=== PATIENT | female | born 1965 | race Caucasian/White ===

== ENCOUNTER 2017-06-08 12:53 | Emergency (ER) | payer BC ==
[2017-06-08 12:58] VITALS: BMI 22.3
[2017-06-08] MEDS ORDERED: DEMEROL INJ IVP ONE (13:05)
[2017-06-08] MEDS ORDERED: ZOFRAN INJ 4 MG VIAL IVP ONE (13:05)
[2017-06-08] MEDS ORDERED: ASPIRIN 81 MG CHEWTAB PO ONE (13:07)
[2017-06-08] MEDS ORDERED: ZOFRAN INJ 4 MG VIAL ONE (13:10)
[2017-06-08] MEDS ORDERED: DEMEROL INJ ONE (13:10)
[2017-06-08 13:16] LABS: BASOPHILS % (AUTO) 0.3 % (0.2-1.0); EOSINOPHILS # (AUTO) 0.1 x10^3/uL (0.0-0.2); EOSINOPHILS % (AUTO) 1.5 % (0.9-2.9); HEMATOCRIT 35.1 % (36.0-47.0); HEMOGLOBIN 11.8 g/dL (12.0-16.0); LYMPHOCYTES # (AUTO) 1.5 X10^3/uL (1.3-2.9); LYMPHOCYTES % (AUTO) 29.9 % (21.0-51.0); MEAN CORPUSCULAR HEMOGLOBIN 30.7 pg (27.0-34.0); MEAN CORPUSCULAR HGB CONC 33.7 g/dL (33.0-35.0); MEAN CORPUSCULAR VOLUME 91.1 fL (80.0-100.0); MEAN PLATELET VOLUME 6.9 fL (7.4-11.0); MONOCYTES # (AUTO) 0.4 x10^3/uL (0.3-0.8); MONOCYTES % (AUTO) 7.3 % (0.0-13.0); PLATELET COUNT 263 X10^3/uL (150.0-450.0); RED BLOOD COUNT 3.85 X10^6/uL (3.5-5.4); RED CELL DISTRIBUTION WIDTH 16.1 % (11.6-16.5)
[2017-06-08] MEDS ORDERED: NIFEDIPINE CAP 10 MG PO ONE ×2 (13:17→13:24)
--- NOTE | 2017-06-08 13:17 | DR.CP ---
HPI - PCP Primary Care Physician: RONALD CRESPO - Complaint Chief Complaint:: PT. C/O CHEST TIGHTNESS THAT RADIATES DOWN LEFT ARM AND LEFT SIDE OF NECK. PT. ALSO C/O HTN. 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 - Reviewed Nurses Notes Review: Yes - Source History Provided: Patient - Mode of Arrival Mode of Arrival: Ambulatory - Timing Onset of Chief Complaint: 05/18/17 PMH - PMH Past Medical History: Yes Past Medical History: Anxiety, Hypertension, Migraines Past Surgical History: Yes Surgical History: Hysterectomy - Family History History of Family Medical Conditions: Yes Family Medical History: Cancer, Coronary Artery Disease, Heart Failure, Hypertension - Social History Does patient currently use any type of tobacco product: No Have you used tobacco products in the last 12 months: No Type of Tobacco Use: None Does any household member use tobacco: No Alcohol Use: None Do you use any recreational Drugs:: No Lives With: Family Lives Where: Home - infectious screening In the last 2 months have you had wt loss of >10#?: NO Have you had fever, night sweats or hemotysis?: No Have you traveled outside the country in the last 6 months?: No Isolation: Standard PE - Vitals Vitals: Temperature 97.8 F Pulse Rate [Apical] 67 Pulse Rate 63 Respiratory Rate 17 Blood Pressure [Right Arm] 179/90 Blood Pressure 218/103 O2 Sat by Pulse Oximetry 100 ROR - Labs Reviewed Result Diagrams: 06/08/17 13:05 06/08/17 13:05 Laboratory: WBC 5.0 X10^3/uL (3.6-10.0) 06/08/17 13:05 RBC 3.85 X10^6/uL (3.5-5.4) 06/08/17 13:05 Hgb 11.8 g/dL (12.0-16.0) L 06/08/17 13:05 Hct 35.1 % (36.0-47.0) L 06/08/17 13:05 MCV 91.1 fL (80.0-100.0) 06/08/17 13:05 MCH 30.7 pg (27.0-34.0) 06/08/17 13:05 MCHC 33.7 g/dL (33.0-35.0) 06/08/17 13:05 RDW 16.1 % (11.6-16.5) 06/08/17 13:05 Plt Count 263 X10^3/uL (150.0-450.0) 06/08/17 13:05 MPV 6.9 fL (7.4-11.0) L 06/08/17 13:05 Neut % 61.0 % (42.0-75.0) 06/08/17 13:05 Lymph % 29.9 % (21.0-51.0) 06/08/17 13:05 Door % 7.3 % (0.0-13.0) 06/08/17 13:05 Eos % 1.5 % (0.9-2.9) 06/08/17 13:05 Baso % 0.3 % (0.2-1.0) 06/08/17 13:05 Neut # 3.0 x10^3/uL (2.2-4.8) 06/08/17 13:05 Lymph # 1.5 X10^3/uL (1.3-2.9) 06/08/17 13:05 Door # 0.4 x10^3/uL (0.3-0.8) 06/08/17 13:05 Eos # 0.1 x10^3/uL (0.0-0.2) 06/08/17 13:05 Baso # 0.0 X10^3/uL (0.0-0.1) 06/08/17 13:05 Absolute Nucleated RBC 0.0 /100WBC 06/08/17 13:05 INR Target Range - 06/08/17 13:05 INR 0.96 (0.8-1.3) 06/08/17 13:05 PTT 25.8 SECONDS (22.9-36.5) 06/08/17 13:05 PTT Comment - 06/08/17 13:05 Sodium 141 mmol/L (136-145) 06/08/17 13:05 Corrected Sodium TNP 06/08/17 13:05 Potassium 3.5 mmol/L (3.5-5.1) 06/08/17 13:05 Chloride 105 mmol/L (98-107) 06/08/17 13:05 Carbon Dioxide 29.7 mmol/L (21-32) 06/08/17 13:05 BUN 7 mg/dL (7-18) 06/08/17 13:05 Creatinine 0.70 mg/dL (0.55-1.02) 06/08/17 13:05 Est GFR (MDRD) Af Amer > 60 (>60) 06/08/17 13:05 Est GFR (MDRD) Non-Af > 60 (>60) 06/08/17 13:05 Glucose 100 mg/dL (65-99) H 06/08/17 13:05 Calcium 8.9 mg/dL (8.5-10.1) 06/08/17 13:05 Corrected Calcium TNP 06/08/17 13:05 Magnesium 1.8 mg/dL (1.7-2.9) 06/08/17 13:05 Total Bilirubin 0.30 mg/dL (0.2-1.0) 06/08/17 13:05 AST 20 Units/L (15-37) 06/08/17 13:05 ALT 20 Units/L (12-78) 06/08/17 13:05 Alkaline Phosphatase 88 Units/L (46-116) 06/08/17 13:05 Creatine Kinase 52 Units/L (26-192) 06/08/17 13:05 CK-MB (CK-2) < 1.0 ng/mL (0-4.0) 06/08/17 13:05 CK/CKMB % Calc 1.9 % (<4) 06/08/17 13:05 Troponin I < 0.02 ng/mL (0-1.5) 06/08/17 13:05 Total Protein 7.0 g/dL (6.4-8.2) 06/08/17 13:05 Albumin 3.8 g/dL (3.4-5.0) 06/08/17 13:05 Globulin 3.2 g/dL (2.5-4.5) 06/08/17 13:05 Albumin/Globulin Ratio 1.2 Ratio (1.1-2.1) 06/08/17 13:05 - Discharge Plan Condition: Stable - Follow ups/Referrals Follow ups/Referrals: EJ WILCOX [Primary Care Provider] - 3 days - Instructions
[2017-06-08] MEDS ORDERED: NIFEDIPINE CAP 10 MG ONE (13:20)
[2017-06-08 13:39] LABS: ALANINE AMINOTRANSFERASE 20 Units/L (12-78); ALBUMIN 3.8 g/dL (3.4-5.0); ALKALINE PHOSPHATASE 88 Units/L (46-116); ASPARTATE AMINO TRANSFERASE 20 Units/L (15-37); BLOOD UREA NITROGEN 7 mg/dL (7-18); CALCIUM 8.9 mg/dL (8.5-10.1); CARBON DIOXIDE 29.7 mmol/L (21-32); CHLORIDE 105 mmol/L (98-107); CKMB % 1.9 % (<4); CREATINE KINASE 52 Units/L (26-192); CREATINE KINASE MB < 1.0 ng/mL (0-4.0); MAGNESIUM 1.8 mg/dL (1.7-2.9); SODIUM 141 mmol/L (136-145); TROPONIN I < 0.02 ng/mL (0-1.5); eGFR BLACK RACES > 60 (>60); eGFR NON BLACK RACES > 60 (>60)
--- NOTE | 2017-06-08 15:03 | RAD ---
HISTORY: 52-year-old female with chest pain. Study: Frontal view of the chest. Comparison: None. Findings: The trachea is midline. The cardiac silhouette is unremarkable. The lungs are clear without focal c onsolidation, effusion or pneumothorax. Soft tissues are unremarkable. Osseous structures are unrema rkable. IMPRESSION: 1. No acute cardiopulmonary disease. Reported By:
[2017-06-08] MEDS ORDERED: LOPRESSOR TAB 50 MG PO ONE (15:20)
[2017-06-08] MEDS ORDERED: ZESTRIL TAB 20 MG PO ONE (15:21)
[2017-06-08] MEDS ORDERED: FLUVIRIN IM ONE (16:06)
[2017-06-08 19:17] LABS: CKMB % 2.5 % (<4); CREATINE KINASE 40 Units/L (26-192); CREATINE KINASE MB < 1.0 ng/mL (0-4.0); TROPONIN I < 0.02 ng/mL (0-1.5)
[2017-06-08] MEDS: NORCO 7.5/325 MG TAB PO PRN (20:37)
[2017-06-09 01:08] LABS: CREATINE KINASE 33 Units/L (26-192); CREATINE KINASE MB < 1.0 ng/mL (0-4.0); TROPONIN I < 0.02 ng/mL (0-1.5)
[2017-06-09] MEDS: NORCO 7.5/325 MG TAB PO PRN (04:03)
[2017-06-09 05:50] LABS: BASOPHILS % (AUTO) 1.1 % (0.2-1.0); EOSINOPHILS # (AUTO) 0.1 x10^3/uL (0.0-0.2); EOSINOPHILS % (AUTO) 2.7 % (0.9-2.9); HEMATOCRIT 34.2 % (36.0-47.0); HEMOGLOBIN 11.6 g/dL (12.0-16.0); LYMPHOCYTES # (AUTO) 1.2 X10^3/uL (1.3-2.9); MEAN CORPUSCULAR HEMOGLOBIN 31.3 pg (27.0-34.0); MEAN CORPUSCULAR HGB CONC 34.1 g/dL (33.0-35.0); MEAN PLATELET VOLUME 7.6 fL (7.4-11.0); MONOCYTES # (AUTO) 0.3 x10^3/uL (0.3-0.8); MONOCYTES % (AUTO) 8.8 % (0.0-13.0); NEUTROPHILS # (AUTO) 2.2 x10^3/uL (2.2-4.8); NEUTROPHILS % (AUTO) 55.4 % (42.0-75.0); PLATELET COUNT 245 X10^3/uL (150.0-450.0); RED BLOOD COUNT 3.72 X10^6/uL (3.5-5.4); RED CELL DISTRIBUTION WIDTH 15.9 % (11.6-16.5); WHITE BLOOD COUNT 3.9 X10^3/uL (3.6-10.0)
[2017-06-09 06:02] LABS: ALANINE AMINOTRANSFERASE 19 Units/L (12-78); ALBUMIN 3.4 g/dL (3.4-5.0); ALKALINE PHOSPHATASE 79 Units/L (46-116); ASPARTATE AMINO TRANSFERASE 15 Units/L (15-37); BLOOD UREA NITROGEN 12 mg/dL (7-18); CALCIUM 8.6 mg/dL (8.5-10.1); CARBON DIOXIDE 29.3 mmol/L (21-32); CHLORIDE 107 mmol/L (98-107); SODIUM 142 mmol/L (136-145); TOTAL PROTEIN 6.4 g/dL (6.4-8.2); eGFR BLACK RACES > 60 (>60); eGFR NON BLACK RACES > 60 (>60)
[2017-06-09] MEDS ORDERED: FIORICET #3 W/CODEINE CAP PO PRN (07:18)
[2017-06-09] MEDS ORDERED: PHENERGAN INJ 25 MG IV PRN (08:39)
[2017-06-09] MEDS ORDERED: DEMEROL INJ IVP PRN (08:42)
--- NOTE | 2017-06-09 08:45 | DR.H&P ---
H&P - History & Physical for Day of: H&P Date: 06/08/17 - Chief Complaint Chief Complaint: chest pain, bhatti elevated bp - Allergies Allergies/Adverse Reactions: Allergies Allergy/AdvReac Type Severity Reaction Status Date / Time morphine Allergy Verified 06/08/17 15:43 - History of Present Illness History of Present Illness: pt is 52 WF admitted from ER after presented with co chest pain. Pt was hypertensive in ED. pt admitted to r/o AMI. Pt states CP is pressure type pain radiates to left neck. Pt co nausea and bhatti. Pt has strong family hx of CAD, mother had CABG and sister in 50's recently with sudden cardiac event. Will obtain serial CE and EKG, pain and nausea control, telemetry and BP control. - Past Medical History Past Medical History: Anxiety, Hypertension, Migraines - Past Surgical History Surgical History: Hysterectomy - Family History Family Medical History: [place] - Social History Does patient currently use any type of tobacco product: No Have you used tobacco products in the last 12 months: No Type of Tobacco Use: None Does any household member use tobacco: No Alcohol Use: None Drug Use: None - Medications Home Medications: Aspirin [ASPIRIN 81 MG CHEWTAB *] 1 tab PO DAILY 06/08/17 [History Confirmed ] Citalopram Hydrobromide [Celexa 10 mg] 1 tab PO DAILY 06/08/17 [History Confirmed 06/08/17] Folic Acid 1 tab PO DAILY 06/08/17 [History Confirmed 06/08/17] Gabapentin [NEURONTIN TAB 600 MG *] 600 mg PO BID 06/08/17 [History Confirmed ] Hydrochlorothiazide [HYDROCHLOROTHIAZIDE 25 MG TAB *] 1 tab PO DAILY 06/08/17 [ History Confirmed 06/08/17] Hydrocodone-Acet 7.5 mg/325 mg [NORCO 7.5 MG/325 MG *] 1 tab PO Q6H PRN [History Confirmed 06/08/17] Hydroxychloroquine Sulfate 200 mg PO DAILY 06/08/17 [History Confirmed 06/08/17] Losartan Potassium 1 tab PO DAILY 06/08/17 [History Confirmed 06/08/17] Methotrexate Sodium [METHOTREXATE 2.5 MG *] 7 tabs PO WEEKLY 06/08/17 [History Confirmed 06/08/17] Potassium Chloride 1 tab PO DAILY 06/08/17 [History Confirmed 06/08/17] Qchtoqnpec-Nvug-Xosl-Codeine [FIORICET #3 W/Codeine cap *] 1 - 2 cap PO Q6H PRN 06/09/17 [History Confirmed 06/09/17] - Review of Systems Constitutional: Weakness Eyes: No Symptoms Reported ENT: No Symptoms Reported Respiratory: Shortness of Breath Cardiovascular: Chest Pain Gastrointestinal: Nausea Genitourinary: No Symptoms Reported Musculoskeletal: Neck Pain Skin: No Symptoms Reported Neurological: Weakness - Physical Exam Vital Signs: Temperature 98.5 F Pulse Rate [Apical] 65 Pulse Rate 63 Respiratory Rate 12 Blood Pressure [Right Arm] 163/76 Blood Pressure 218/103 O2 Sat by Pulse Oximetry 99 Oriented: Normal Eyes: Normal Ear: Normal Nose: Normal Throat: Normal Respiratory: Clear Throughout Cardiovascular: Normal. negative: Murmur : Normal Auscultation: Bowel Sounds: Normal Palpation: Normal Tenderness: Normal Skin: Normal Musculoskeletal: Tender (c spine) Psychiatric: Anxiety Affect: Anxious Speech Pattern: Clear, Appropriate - Assessment/Plan (1) Chest pain Status: Acute Plan: Admit, Serial CE EKG's, bp monitoring and control. resume home meds. cxr on admission (2) Hypertensive urgency Status: Acute (3) Sweet's disease Status: Acute (4) JESSICA (generalized anxiety disorder) Status: Acute
[2017-06-09 09:34] LABS: CREATINE KINASE 34 Units/L (26-192); CREATINE KINASE MB < 1.0 ng/mL (0-4.0); TROPONIN I < 0.02 ng/mL (0-1.5)
[2017-06-09 09:35] LABS: CKMB % 2.9 % (<4)
[2017-06-09 11:22] VITALS: BP 166/81
[2017-06-09] MEDS ORDERED: NS 100 ML IV 100 ML IV ONE (12:01)
--- NOTE | 2017-06-09 13:57 | CT ---
History: Hypertension Study: CTA of the abdomen and pelvis without and with 100 mL Omnipaque 300. MIPS of the abdominal aor ta and iliac arteries were displayed in multiple degrees of obliquity. Sagittal and coronal reformati ons were provided. Comparison: None Findings: The visualized lung bases are clear. There is no pleural effusion. There is moderate athero sclerotic calcification in the distal abdominal aorta and the common iliac and external iliac arterie s peer there is no calcification demonstrated of significance about the renal arteries. There is no e vidence for renal artery stenosis or aneurysm. There is a small cyst medially in the lower pole of th e left kidney. There are 2 right renal arteries. One to the ventral and dorsal segments. There is no evidence for aortic aneurysm. The iliac arteries are widely patent. The SMA and celiac axis and ONEL a re patent. There is fatty infiltration of the liver without focal mass. The spleen and pancreas and adrenal glan ds are unremarkable. There is no free fluid or adenopathy or abnormal mass. There is no significant b otto abnormality demonstrated. Impression: 1. Prominent atherosclerotic disease in the distal abdominal aorta and iliac arteries without evidenc e for stenosis or aneurysm demonstrated. 2.Two right renal arteries. No renal artery stenosis or aneurysm demonstrated Reported By:
== END 2017-06-09 13:10 | disposition short-term general hospital (02) | DRG 313 ==
LOC: ER 13:03 → MED/SURG 15:16
PROVIDERS: ADMIT Internal Medicine; ATTEND Internal Medicine
PROC: 3E0234Z Introduction of Serum, Toxoid and Vaccine into Muscle, Percutaneous Approach (ICD-10-PCS; principal; 2017-06-08)
DX: R07.89 Other chest pain (principal); I16.0 Hypertensive urgency; L98.2 Febrile neutrophilic dermatosis [Sweet]; I10 Essential (primary) hypertension; F41.8 Other specified anxiety disorders; R06.02 Shortness of breath; R94.31 Abnormal electrocardiogram [ECG] [EKG]
CPT/HCPCS: 36415; 71010; 74174; 80053; 82550; 82553; 83735; 84484; 85025; 85610; 85730; 90686; 93005; 93010; 94760; 96365; 96374; 96375; 99284; A4222; G0378; J2175; J2405; J2550

== ENCOUNTER 2019-11-08 12:31 | Observation (INO) ==
[2019-11-08] MEDS ORDERED: PHARMACY CONSULT - VANCOMYCIN XX SCH (13:00)
--- NOTE | 2019-11-08 13:26 | DR.H&P ---
H&P - History & Physical for Day of: H&P Date: 11/08/19 - Chief Complaint Chief Complaint: PAIN, REDNESS SWELLING TO RIGHT 5TH FINGER TIP - History of Present Illness History of Present Illness: PTIS 54 WF DIRECT ADMIT FROM DR ROBERSON OFFICE WITH ABSCESS AND CELLULITIS TO RIGHT 5TH FINGER. PT HAS HX OF SWEETS DISEASE AND HAS A HISTORY OF PUSTULAR RASH, LESION THAT REOCCUR. PT CO ONSET MONDAY, USING BACTROBAN DIRECTED WITH NO IMPROVEMENT. PT HAD INCREASED WARMTH, REDNESS TO FINGER TIP WITH PURULENT DC AND RED STREAKING UP HER ARM. PT HAD PMH OF HTN, OA, SWEETS, JESSICA. PT ADMITTED FOR TREATMENT OF ACUTE ILLNESS - Past Medical History Past Medical History: Anxiety, Hypertension, Migraines - Past Surgical History Surgical History: Hysterectomy - Family History Family Medical History: [place] - Social History Does patient currently use any type of tobacco product: No Have you used tobacco products in the last 12 months: No Type of Tobacco Use: None Does any household member use tobacco: No Drug Use: None Risks, benefits, and alternatives of opioids discussed: No Prescription drug monitoring program results: PDMP reviewed and no concerns identified - Medications Home Medications: morphine Allergy (Verified 11/08/19 12:44) - Review of Systems Constitutional: No Symptoms Reported Eyes: No Symptoms Reported ENT: No Symptoms Reported Respiratory: No Symptoms Reported Cardiovascular: No Symptoms Reported Gastrointestinal: Nausea Genitourinary: No Symptoms Reported Musculoskeletal: Back Pain, Hand Pain, Leg Pain Skin: Wound Neurological: No Symptoms Reported - Physical Exam Vital Signs: Blood Pressure [Right Arm] 166/81 Oriented: Normal Eyes: Normal Ear: Normal Nose: Normal Throat: Normal Respiratory: Clear Throughout Cardiovascular: Normal : Normal Auscultation: Bowel Sounds: Normal Palpation: Normal Tenderness: Normal Skin: Red, Tender, Hot, Wound (RIGHT 5TH FINGER TIP, ABCESS FORMATION LOCALIZED REDNESS, TENDER, PURULENT DC) Psychiatric: Anxiety Affect: Anxious Speech Pattern: Clear, Appropriate - Assessment/Plan (1) Abscess of finger of right hand Status: Acute Plan: ADMIT, CBC CMP BC UA ON ADMISSION. XRAY RIGHT HAND, IV HYDRATION. PAIN CONTROL, IV VACOMYCIN. WOUND CULTURE, CONSULT DR LU FOR I&D EVALUATION. BP CONTROL, VERIFY HOME MEDICATION (2) Cellulitis of hand Status: Acute (3) JESSICA (generalized anxiety disorder) Status: Acute (4) Sweet's disease Status: Acute - Allergies Allergies/Adverse Reactions: Allergies Allergy/AdvReac Type Severity Reaction Status Date / Time morphine Allergy Verified 11/08/19 12:44
--- NOTE | 2019-11-08 13:49 | RAD ---
HISTORYABCESS CELLULITIS RT 5TH FINGERSTUDYThree views of the right handCOMPARISONNoneFINDINGSThere is soft tissue swelling about the 5th digit distally and primarily medially on the ulnar side. There is no fracture or bone erosion or destruction or marginal osteophyte formation.IMPRESSIONDistal 5th digit soft tissue swelling without evidence for osteomyelitisElectronically signed by: FABIO BURRELL (Nov 08, 2019 13:48:38)
[2019-11-08 14:25] VITALS: BMI 27.1
[2019-11-08] MEDS: ASPIRIN 81 MG CHEWTAB PO SCH (14:46)
[2019-11-08] MEDS: NEURONTIN TAB 600 MG PO SCH ×2 (14:46→20:20)
[2019-11-08] MEDS: NS 1000 ML 1,000 ML IV SCH (14:48)
[2019-11-08 15:14] LABS: BASOPHILS % (AUTO) 0.3 % (0.2-1.0); EOSINOPHILS # (AUTO) 0.2 x10^3/uL (0.0-0.2); EOSINOPHILS % (AUTO) 1.9 % (0.9-2.9); HEMATOCRIT 39.8 % (36.0-47.0); HEMOGLOBIN 13.6 g/dL (12.0-16.0); LYMPHOCYTES # (AUTO) 1.6 X10^3/uL (1.3-2.9); LYMPHOCYTES % (AUTO) 17.9 % (21.0-51.0); MEAN CORPUSCULAR HEMOGLOBIN 31.4 pg (27.0-34.0); MEAN CORPUSCULAR HGB CONC 34.1 g/dL (33.0-35.0); MEAN PLATELET VOLUME 6.6 fL (7.4-11.0); MONOCYTES # (AUTO) 0.4 x10^3/uL (0.3-0.8); MONOCYTES % (AUTO) 4.8 % (0.0-13.0); NEUTROPHILS # (AUTO) 6.8 x10^3/uL (2.2-4.8); NEUTROPHILS % (AUTO) 75.1 % (42.0-75.0); PLATELET COUNT 616 X10^3/uL (150.0-450.0); RED BLOOD COUNT 4.33 X10^6/uL (3.5-5.4)
[2019-11-08] MEDS ORDERED: MARCAINE 0.5% IJ ONE (15:14)
[2019-11-08] MEDS ORDERED: BETADINE SOLN TOP ONE (15:17)
[2019-11-08] MEDS ORDERED: MARCAINE 0.5% ONE (15:22)
[2019-11-08 15:39] LABS: PLATELET MORPHOLOGY COMMENT NORMAL (NORMAL)
[2019-11-08 16:01] LABS: BLOOD UREA NITROGEN 11 mg/dL (7-18); CALCIUM 9.2 mg/dL (8.5-10.1); CARBON DIOXIDE 27.9 mmol/L (21-32); CHLORIDE 102 mmol/L (98-107); CREATININE 0.59 mg/dL (0.55-1.02); SODIUM 141 mmol/L (136-145); eGFR NON BLACK RACES > 60 (>60)
[2019-11-08 16:04] LABS: ALANINE AMINOTRANSFERASE 32 Units/L (12-78); ALBUMIN 3.2 g/dL (3.4-5.0); ALKALINE PHOSPHATASE 119 Units/L (46-116); ASPARTATE AMINO TRANSFERASE 29 Units/L (15-37); COR CA(FOR HYPOALB) 9.8 mg/dL (8.5-10.1); TOTAL PROTEIN 8.3 g/dL (6.4-8.2)
[2019-11-08] MEDS ORDERED: KLOR-CON PO PRN (16:17)
[2019-11-08] MEDS ORDERED: K-RIDER 10 MEQ/NS 100 ML 10 MEQ/100 ML BAG IV PRN (16:17)
[2019-11-08] MEDS ORDERED: POTASSIUM CHL 40 MEQ/NS 0.45% 500 ML IV PRN (16:17)
[2019-11-08] MEDS ORDERED: POTASSIUM CHLORIDE LIQ 20 MEQ UDC PO PRN (16:17)
[2019-11-08] MEDS ORDERED: POTASSIUM CHL 60 MEQ/NS 0.45% 500 ML IV PRN (16:17)
[2019-11-08] MEDS ORDERED: MICRO K EXTEN CAP 10 MEQ PO PRN (16:17)
[2019-11-08] MEDS: VANCOMYCIN HCL 1 G in D5W 250 ML IV 250 ML IV SCH ×2 (16:28→20:20)
[2019-11-08 18:25] LABS: BILIRUBIN,URINE NEGATIVE (NEGATIVE); BLOOD/HEMOGLOBIN,URINE NEGATIVE (NEGATIVE); GLUCOSE, URINE NEGATIVE (NEGATIVE); KETONES,URINE 1+ (NEGATIVE); LEUKOCYTE ESTERASE ,URINE NEGATIVE (NEGATIVE); NITRITES,URINE NEGATIVE (NEGATIVE); PH,URINE 6.5 (5.0 - 8.0); PROTEIN,URINE NEGATIVE (NEGATIVE); UROBILINOGEN,URINE NORMAL (NORMAL)
[2019-11-08 18:28] LABS: APPEARANCE,URINE CLEAR (CLEAR); COLOR,URINE YELLOW (YELLOW)
[2019-11-08] MEDS: K-DUR TAB 20 MEQ PO PRN (18:30)
[2019-11-08] MEDS: LOPRESSOR TAB 50 MG PO SCH (20:20)
[2019-11-08] MEDS: NORCO 10/325 TAB PO PRN (20:21)
[2019-11-09] MEDS ORDERED: XANAX ONE (00:35)
[2019-11-09] MEDS: XANAX PO PRN ×2 (00:36→22:30)
[2019-11-09] MEDS: NS 1000 ML 1,000 ML IV SCH ×2 (02:25→17:40)
[2019-11-09] MEDS: NORCO 10/325 TAB PO PRN ×4 (02:45→22:30)
[2019-11-09 05:46] LABS: BASOPHILS % (AUTO) 0.5 % (0.2-1.0); EOSINOPHILS # (AUTO) 0.2 x10^3/uL (0.0-0.2); EOSINOPHILS % (AUTO) 2.9 % (0.9-2.9); HEMATOCRIT 39.1 % (36.0-47.0); HEMOGLOBIN 13.1 g/dL (12.0-16.0); LYMPHOCYTES # (AUTO) 1.6 X10^3/uL (1.3-2.9); LYMPHOCYTES % (AUTO) 23.3 % (21.0-51.0); MEAN CORPUSCULAR HEMOGLOBIN 30.6 pg (27.0-34.0); MEAN CORPUSCULAR HGB CONC 33.5 g/dL (33.0-35.0); MEAN CORPUSCULAR VOLUME 91.2 fL (80.0-100.0); MEAN PLATELET VOLUME 6.2 fL (7.4-11.0); MONOCYTES # (AUTO) 0.4 x10^3/uL (0.3-0.8); MONOCYTES % (AUTO) 6.5 % (0.0-13.0); NEUTROPHILS # (AUTO) 4.5 x10^3/uL (2.2-4.8); NEUTROPHILS % (AUTO) 66.8 % (42.0-75.0); PLATELET COUNT 613 X10^3/uL (150.0-450.0); RED BLOOD COUNT 4.29 X10^6/uL (3.5-5.4); RED CELL DISTRIBUTION WIDTH 15.1 % (11.6-16.5); WHITE BLOOD COUNT 6.7 X10^3/uL (3.6-10.0)
[2019-11-09 06:01] LABS: ALANINE AMINOTRANSFERASE 25 Units/L (12-78); ALBUMIN 2.7 g/dL (3.4-5.0); ALKALINE PHOSPHATASE 109 Units/L (46-116); ASPARTATE AMINO TRANSFERASE 21 Units/L (15-37); BLOOD UREA NITROGEN 10 mg/dL (7-18); CALCIUM 8.8 mg/dL (8.5-10.1); CARBON DIOXIDE 27.4 mmol/L (21-32); CHLORIDE 108 mmol/L (98-107); COR CA(FOR HYPOALB) 9.8 mg/dL (8.5-10.1); CREATININE 0.63 mg/dL (0.55-1.02); SODIUM 143 mmol/L (136-145); TOTAL PROTEIN 7.3 g/dL (6.4-8.2); eGFR NON BLACK RACES > 60 (>60)
[2019-11-09 06:20] LABS: PLATELET MORPHOLOGY COMMENT NORMAL (NORMAL)
[2019-11-09] MEDS: COZAAR PO SCH (10:09)
[2019-11-09] MEDS: ASPIRIN 81 MG CHEWTAB PO SCH (10:09)
[2019-11-09] MEDS: NEURONTIN TAB 600 MG PO SCH ×2 (10:09→21:00)
[2019-11-09] MEDS: LOPRESSOR TAB 50 MG PO SCH ×2 (10:09→21:00)
[2019-11-09] MEDS: CELEXA PO SCH (10:10)
[2019-11-09] MEDS: VANCOMYCIN HCL 1 G in D5W 250 ML IV 250 ML IV SCH ×2 (10:13→22:00)
[2019-11-09] MEDS ORDERED: BACTROBAN TOPICAL OINT ONE (10:57)
[2019-11-09] MEDS ORDERED: HYDROGEN PEROXIDE 3% ONE (10:58)
[2019-11-09] MEDS ORDERED: PHARMACY COMMENT IV NR (20:30)
[2019-11-09 21:04] LABS: CREATININE 0.62 mg/dL (0.55-1.02); VANCOMYCIN,TROUGH 7.8 ug/mL (15-20)
[2019-11-10] MEDS ORDERED: CATAPRES TAB 0.1 MG PO ONE (03:49)
[2019-11-10] MEDS ORDERED: CATAPRES TAB 0.1 MG ONE (03:50)
[2019-11-10 05:36] LABS: BASOPHILS % (AUTO) 0.6 % (0.2-1.0); EOSINOPHILS # (AUTO) 0.2 x10^3/uL (0.0-0.2); EOSINOPHILS % (AUTO) 2.9 % (0.9-2.9); HEMATOCRIT 38.3 % (36.0-47.0); LYMPHOCYTES # (AUTO) 1.9 X10^3/uL (1.3-2.9); LYMPHOCYTES % (AUTO) 27.6 % (21.0-51.0); MEAN CORPUSCULAR HEMOGLOBIN 31.2 pg (27.0-34.0); MEAN CORPUSCULAR VOLUME 91.9 fL (80.0-100.0); MEAN PLATELET VOLUME 6.5 fL (7.4-11.0); MONOCYTES # (AUTO) 0.5 x10^3/uL (0.3-0.8); MONOCYTES % (AUTO) 7.5 % (0.0-13.0); NEUTROPHILS # (AUTO) 4.2 x10^3/uL (2.2-4.8); NEUTROPHILS % (AUTO) 61.4 % (42.0-75.0); PLATELET COUNT 650 X10^3/uL (150.0-450.0); RED BLOOD COUNT 4.17 X10^6/uL (3.5-5.4); RED CELL DISTRIBUTION WIDTH 15.3 % (11.6-16.5); WHITE BLOOD COUNT 6.9 X10^3/uL (3.6-10.0)
[2019-11-10 05:41] LABS: PLATELET MORPHOLOGY COMMENT NORMAL (NORMAL)
[2019-11-10 05:49] LABS: ALANINE AMINOTRANSFERASE 23 Units/L (12-78); ALBUMIN 2.6 g/dL (3.4-5.0); ALKALINE PHOSPHATASE 97 Units/L (46-116); ASPARTATE AMINO TRANSFERASE 16 Units/L (15-37); BLOOD UREA NITROGEN 6 mg/dL (7-18); CALCIUM 8.6 mg/dL (8.5-10.1); CARBON DIOXIDE 25.9 mmol/L (21-32); CHLORIDE 109 mmol/L (98-107); COR CA(FOR HYPOALB) 9.7 mg/dL (8.5-10.1); COR NA(FOR HYPERGLY) 143 mmol/L (136-145); CREATININE 0.54 mg/dL (0.55-1.02); SODIUM 143 mmol/L (136-145); TOTAL PROTEIN 7.1 g/dL (6.4-8.2); eGFR NON BLACK RACES > 60 (>60)
[2019-11-10] MEDS: VANCOMYCIN HCL 1 G in D5W 250 ML IV 250 ML IV SCH ×2 (05:51→05:56)
[2019-11-10] MEDS: K-DUR TAB 20 MEQ PO PRN (06:38)
[2019-11-10 08:07] VITALS: BP 155/77
[2019-11-10] MEDS: NEURONTIN TAB 600 MG PO SCH (08:34)
[2019-11-10] MEDS: COZAAR PO SCH (08:34)
[2019-11-10] MEDS: CELEXA PO SCH (08:35)
[2019-11-10] MEDS: ASPIRIN 81 MG CHEWTAB PO SCH (08:35)
[2019-11-10] MEDS: LOPRESSOR TAB 50 MG PO SCH (08:36)
[2019-11-10] MEDS: NS 1000 ML 1,000 ML IV SCH (08:37)
[2019-11-10] MEDS ORDERED: VANCOMYCIN HCL 1 G in D5W 250 ML IV 250 ML IV SCH (14:00)
[2019-11-10] MEDS ORDERED: PHARMACY COMMENT IV NR (21:30)
--- NOTE | 2019-12-06 10:33 | PCM.PROG ---
Progress Note - Progress Note for Day of Date of Exam: 11/09/19 - Subjective Subjective: IS A 54 YEAR OLD PATIENT OF . SHE WAS ADMITTED FOR AN ABSCESS AND CELLULITIS TO THE RIGHT 5TH FINGER. PT HAD INCREASED WARMTH, REDNESS TO FINGER TIP WITH PURULENT DC AND RED STREAKING UP HER ARM PRIOR TO ADMISSION. PT HAD PMH OF HTN, OA, SWEETS, JESSICA. ON ADMISSION, TOOK PATIENT TO THE OR FOR EXCISION AND DEBRIDEMENT OF 5TH FINGER, ABSCESS, AND CELLULITIS. ON MORNING ROUNDS. SHE REPORTS SLIGHT PAIN TO FINGER. FINGER IS NOTED WITH A DRESSING. DRESSING IS DRY AND INTACT. HER VITALS THIS MORNING ARE: 99.0-80-20-97%-149/70. LABS WERE OBTAINED. ABNORMAL LAB VALUES INCLUDE THE FOLLOWING: PLT COUNT 613, CHLORIDE 108, GLUCOSE 108, ALBUMIN 2.7, GLOBULIN 4.6. CULTURES ARE PENDING. SHE IS CURRENTLY RECEIVING IV VANCOMYCIN, PAIN CONTROL, AND WOUND CARE. WE WILL CONTINUE WITH CURRENT PLAN OF CARE TODAY. OTHERWISE, WE WILL FOLLOW UP WITH AM LABS AND CONTINUE TO MONITOR. - Past Medical Family Social History Past Med/Fam/Surg Hx: No changes since H&P Allergies: Allergies morphine Allergy (Verified 11/08/19 12:44) - Review of Systems ROS: No change since H&P - Vital Signs and I&O's Vital Signs: Temperature 98.6 F Pulse Rate [Brachial] 80 Respiratory Rate 18 Blood Pressure [Left Arm] 155/77 Blood Pressure [Right Arm] 166/81 O2 Sat by Pulse Oximetry 99 - Physical Exam Oriented: Normal Eyes: Normal Ear: Normal Nose: Normal Throat: Normal Cardiovascular: Normal : Normal Auscultation: Bowel Sounds: Normal Palpation: Normal Tenderness: Normal Skin: Red, Tender, Hot, Wound (RIGHT 5TH FINGER TIP, REDNESS AND TENDERNESS ) Psychiatric: Anxiety Mood Description: Calm Affect: Anxious Speech Pattern: Clear, Appropriate - Laboratory and Diagnostics Result Diagrams: 11/10/19 04:26 11/10/19 04:26 Labs: 11/08/19 14:32 Blood Blood Culture - Final 11/08/19 14:27 Blood Blood Culture - Final 11/08/19 14:35 Finger - Right Pinky Gram Stain - Final 11/08/19 14:35 Finger - Right Pinky Wound Culture - Final Laboratory WBC 6.9 X10^3/uL (3.6-10.0) 11/10/19 04:26 RBC 4.17 X10^6/uL (3.5-5.4) 11/10/19 04:26 Hgb 13.0 g/dL (12.0-16.0) 11/10/19 04:26 Hct 38.3 % (36.0-47.0) 11/10/19 04:26 MCV 91.9 fL (80.0-100.0) 11/10/19 04:26 MCH 31.2 pg (27.0-34.0) 11/10/19 04:26 MCHC 34.0 g/dL (33.0-35.0) 11/10/19 04: RDW 15.3 % (11.6-16.5) 11/10/19 04:26 Plt Count 650 X10^3/uL (150.0-450.0) H 11/10/19 04:26 Plt Count Comment Increased (ADEQUATE) A 11/10/19 04:26 MPV 6.5 fL (7.4-11.0) L 11/10/19 04:26 Neut % (Auto) 61.4 % (42.0-75.0) 11/10/19 04:26 Lymph % (Auto) 27.6 % (21.0-51.0) 11/10/19 04:26 [place] % (Auto) 7.5 % (0.0-13.0) 11/10/19 04:26 Eos % (Auto) 2.9 % (0.9-2.9) 11/10/19 04:26 Baso % (Auto) 0.6 % (0.2-1.0) 11/10/19 04:26 Neut # (Auto) 4.2 x10^3/uL (2.2-4.8) 11/10/19 04:26 Lymph # (Auto) 1.9 X10^3/uL (1.3-2.9) 11/10/19 04:26 [place] # (Auto) 0.5 x10^3/uL (0.3-0.8) 11/10/19 04:26 Eos # (Auto) 0.2 x10^3/uL (0.0-0.2) 11/10/19 04:26 Baso # (Auto) 0.0 X10^3/uL (0.0-0.1) 11/10/19 04:26 Absolute Nucleated RBC 0.0 /100WBC 11/10/19 04:26 Plt Morphology Comment Normal (NORMAL) 11/10/19 04:26 RBC Morphology Normal (NORMAL) 11/10/19 04:26 Sodium 143 mmol/L (136-145) 11/10/19 04:26 Corrected Sodium 143 mmol/L (136-145) 11/10/19 04:26 Potassium 3.1 mmol/L (3.5-5.1) L 11/10/19 04:26 Chloride 109 mmol/L (98-107) H 11/10/19 04:26 Carbon Dioxide 25.9 mmol/L (21-32) 11/10/19 04:26 BUN 6 mg/dL (7-18) L 11/10/19 04:26 Creatinine 0.54 mg/dL (0.55-1.02) L 11/10/19 04:26 Est GFR (MDRD) Af Amer > 60 (>60) 11/10/19 04:26 Est GFR (MDRD) Non-Af > 60 (>60) 11/10/19 04:26 Glucose 115 mg/dL (65-99) H 11/10/19 04:26 Calcium 8.6 mg/dL (8.5-10.1) 11/10/19 04:26 Corrected Calcium 9.7 mg/dL (8.5-10.1) 11/10/19 04:26 Magnesium 1.9 mg/dL (1.7-2.9) 11/10/19 04:26 Total Bilirubin 0.20 mg/dL (0.2-1.0) 11/10/19 04:26 AST 16 Units/L (15-37) 11/10/19 04:26 ALT 23 Units/L (12-78) 11/10/19 04:26 Alkaline Phosphatase 97 Units/L (46-116) 11/10/19 04:26 Total Protein 7.1 g/dL (6.4-8.2) 11/10/19 04:26 Albumin 2.6 g/dL (3.4-5.0) L 11/10/19 04:26 Globulin 4.5 g/dL (2.5-4.5) 11/10/19 04:26 Albumin/Globulin Ratio 0.6 Ratio (1.1-2.1) L 11/10/19 04:26 Specimen Type Clean catch urine 11/08/19 18:08 Urine Color Yellow (YELLOW) 11/08/19 18:08 Urine Appearance Clear (CLEAR) 11/08/19 18:08 Urine pH 6.5 (5.0 - 8.0) 11/08/19 18:08 Ur Specific [place] 1.010 (1.000-1.030) 11/08/19 18:08 Urine Protein Negative (NEGATIVE) 11/08/19 18:08 Urine Glucose (UA) Negative (NEGATIVE) 11/08/19 18:08 Urine Ketones 1+ (NEGATIVE) 11/08/19 18:08 Urine Occult Blood Negative (NEGATIVE) 11/08/19 18:08 Urine Nitrite Negative (NEGATIVE) 11/08/19 18:08 Urine Bilirubin Negative (NEGATIVE) 11/08/19 18:08 Urine Urobilinogen Normal (NORMAL) 11/08/19 18:08 Ur Leukocyte Esterase Negative (NEGATIVE) 11/08/19 18:08 Vancomycin Trough 7.8 ug/mL (15-20) L 11/09/19 20:30 Tissue Pathology To follow 11/08/19 15:30 - Plan (1) Abscess of finger of right hand Status: Acute Plan: CBC CMP BC PENDING, IV HYDRATION. PAIN CONTROL, IV VACOMYCIN. WOUND CULTURE,. BP CONTROL (2) Cellulitis of hand Status: Acute (3) JESSICA (generalized anxiety disorder) Status: Acute (4) Sweet's disease Status: Acute
== END 2019-11-10 09:50 | disposition home or self-care (01) ==
LOC: MED/SURG
PROVIDERS: ADMIT Internal Medicine; ATTEND Internal Medicine
DX: L03.011 Cellulitis of right finger; L98.2 Febrile neutrophilic dermatosis [Sweet]; L02.511 Cutaneous abscess of right hand; I10 Essential (primary) hypertension; I25.10 Atherosclerotic heart disease of native coronary artery without angina pectoris
CPT/HCPCS: 36415; 73130; 80053; 80202; 81003; 82565; 83735; 85025; 87040; 87070; 87075; 87205; 96360; 96361; 96372; A4222; G0378; J3370; J3490; J7030; J7060